=== PATIENT | male | born 1975 | race Caucasian/White ===

== ENCOUNTER 2016-11-07 07:05 | Emergency (ER) | payer MEDICAID ==
[2016-11-07] MEDS ORDERED: ONDANSETRON 4 MG/2 ML VIAL ONE (07:10)
[2016-11-07] MEDS ORDERED: NS 1,000 ML IV ONE ×2 (07:16→08:10)
[2016-11-07] MEDS ORDERED: KETOROLAC 30 MG/1 ML SDV IVP ONE (07:16)
[2016-11-07] MEDS ORDERED: ONDANSETRON 4 MG/2 ML VIAL IVP ONE (07:16)
--- NOTE | 2016-11-07 07:20 | EDPHY ---
H & P Time Seen by Provider: 11/07/16 07:11 HPI/ROS: CHIEF COMPLAINT: Vomiting, diarrhea HISTORY OF PRESENT ILLNESS: Patient is a 41-year-old male who presents to the emergency department with vomiting and diarrhea. He states "I know exactly who gave it to me." Patient states he had a friend who was vomiting for a day. He developed vomiting and diarrhea fairly simultaneously last evening. He has had numerous episodes. He is unable to keep food or liquids down. He feels thirsty and dehydrated. He denies significant abdominal pain. No fevers or chills. Diffuse abdominal cramping with no specific pain. REVIEW OF SYSTEMS: My complete review of systems is negative except as mentioned in the HPI. Past Medical/Surgical History: Attention deficit hyperactivity disorder, chronic back problems Past surgical history: Multiple spinal fusion Social history: The patient denies recent drugs or alcohol. Physical Exam: Vitals noted GENERAL: No acute distress, alert. HEENT: Eyes normal to inspection, normal pharynx, mildly dry mucous membranes. NECK: No thyromegaly, no lymphadenopathy, supple. RESPIRATORY: Clear to auscultation bilaterally, no rales, rhonchi or wheezing. CVS: Regular rate and rhythm, no rubs, murmurs, or gallops. ABDOMEN: Soft, nontender, nondistended, no organomegaly. Benign BACK: Normal to inspection, no CVA tenderness. SKIN: Normal color, no rash, warm, dry. No pallor. EXTREMITIES: No pedal edema, no calf tenderness, no Homans sign or cords, no joint swelling. NEURO/PSYCH: Alert and oriented, normal mood and affect, normal motor sensory exam. Constitutional: Initial Vital Signs Temperature (C) 36.9 C 11/07/16 07:18 Heart Rate 91 11/07/16 07:18 Respiratory Rate 18 11/07/16 07:18 Blood Pressure 131/91 H 11/07/16 07:18 O2 Sat (%) 94 11/07/16 07:18 O2 Delivery Mode Room Air Allergies/Adverse Reactions: No Known Allergies Allergy (Unverified 11/07/16 07:18) Home Medications: Medication Instructions Recorded Adderall 10 MG (*) 11/07/16 Ondansetron Odt [Zofran Odt 4 mg 4 mg PO Q4PRN PRN #7 tab 11/07/16 (*)] Medical Decision Making ED Course/Re-evaluation: In the emergency department I discussed possible etiologies with the patient. The patient was given normal saline 1 L IV for hydration. He was given Zofran 4 mg IV for nausea. The patient had laboratory studies ordered. The patient was complaining of body aches from vomiting. He is given Toradol 30 mg IV. I reviewed the patient's laboratory studies. Of note hematocrit was elevated at 56. His total bilirubin was mildly elevated. Patient was given a repeat L of normal saline for hydration. Differential Diagnosis: My differential includes but is not limited to small-bowel obstruction, perforation, viral illness, dehydration, pancreatitis, cholecystitis - Data Points Laboratory Results: Laboratory Results 11/07/16 07:05 11/07/16 07:05 11/07/16 11/07/16 07:05 07:05 WBC 8.29 10^3/uL 10^3/uL (3.80-9.50) RBC 5.88 10^6/uL 10^6/uL (4.40-6.38) Hgb 19.4 g/dL H g/dL (13.7-17.5) Hct 56.7 % H % (40.0-51.0) MCV 96.4 fL fL (81.5-99.8) MCH 33.0 pg pg (27.9-34.1) MCHC 34.2 g/dL g/dL (32.4-36.7) RDW 13.1 % % (11.5-15.2) Plt Count 225 10^3/uL 10^3/uL (150-400) MPV 8.3 fL L fL (8.7-11.7) Neut % (Auto) 90.6 % H % (39.3-74.2) Lymph % (Auto) 5.3 % L % (15.0-45.0) [place] % (Auto) 3.5 % L % (4.5-13.0) Eos % (Auto) 0.2 % L % (0.6-7.6) Baso % (Auto) 0.2 % L % (0.3-1.7) Nucleat RBC Rel Count 0.0 % % (0.0-0.2) Absolute Neuts (auto) 7.50 10^3/uL H 10^3/uL (1.70-6.50) Absolute Lymphs (auto) 0.44 10^3/uL L 10^3/uL (1.00-3.00) Absolute Monos (auto) 0.29 10^3/uL L 10^3/uL (0.30-0.80) Absolute Eos (auto) 0.02 10^3/uL L 10^3/uL (0.03-0.40) Absolute Basos (auto) 0.02 10^3/uL 10^3/uL (0.02-0.10) Absolute Nucleated RBC 0.00 10^3/uL 10^3/uL (0-0.01) Immature Gran % 0.2 % % (0.0-1.1) Immature Gran # 0.02 10^3/uL 10^3/uL (0.00-0.10) Sodium 144 mEq/L mEq/L (134-144) Potassium 4.1 mEq/L mEq/L (3.5-5.2) Chloride 103 mEq/L mEq/L (97-110) Carbon Dioxide 28 mEq/l mEq/l (22-31) Anion Gap 13 mEq/L mEq/L (8-16) BUN 35 mg/dL H mg/dL (7-23) Creatinine 0.9 mg/dL mg/dL (0.7-1.3) Estimated GFR > 60 Glucose 118 mg/dL H mg/dL (70-100) Calcium 9.7 mg/dL mg/dL (8.5-10.4) Total Bilirubin 1.5 mg/dL H mg/dL (0.1-1.4) Conjugated Bilirubin 0.4 mg/dL mg/dL (0.0-0.5) Unconjugated Bilirubin 1.1 mg/dL mg/dL (0.0-1.1) AST 23 IU/L IU/L (17-59) ALT 36 IU/L IU/L (21-72) Alkaline Phosphatase 93 IU/L IU/L (38-126) Total Protein 8.4 g/dL H g/dL (6.3-8.2) Albumin 4.9 g/dL g/dL (3.5-5.0) Lipase 89.0 IU/L IU/L (23-300) Medications Given: Discontinued Medications Sodium Chloride (Ns) 1,000 mls @ 0 mls/hr IV ONCE ONE PRN Reason: Wide Open Stop: 11/07/16 07:17 Last Admin: 11/07/16 07:21 Dose: 1,000 mls Ketorolac Tromethamine (Toradol) 30 mg IVP EDNOW ONE Stop: 11/07/16 07:17 Last Admin: 11/07/16 07:25 Dose: 30 mg Ondansetron HCl (Zofran) 4 mg IVP EDNOW ONE Stop: 11/07/16 07:17 Last Admin: 11/07/16 07:21 Dose: 4 mg Departure - Departure Disposition: Home, Routine, Self-Care Clinical Impression: Vomiting Qualifiers: Vomiting type: unspecified Vomiting Intractability: non-intractable Nausea presence: with nausea Qualified Code(s): R11.2 - Nausea with vomiting, unspecified Diarrhea Qualifiers: Diarrhea type: presumed infectious Qualified Code(s): A09 - Infectious gastroenteritis and colitis, unspecified Condition: Good Instructions: Acute Nausea and Vomiting (ED), Acute Diarrhea (ED) Additional Instructions: Return with increasing episodes of vomiting, bloody vomiting, inability to tolerate oral intake, or any other concerns. Referrals: [facility],. [Clinic] - 3-4 days, if not improved Prescriptions: Ondansetron Odt [Zofran Odt 4 mg (*)] 4 mg PO Q4PRN PRN #7 tab PRN Reason: For Nausea & Vomiting
[2016-11-07 07:21] VITALS: RESP 18
[2016-11-07 07:22] LABS: % IMMATURE GRANULYOCYTES 0.2 % (0.0-1.1); ABSOLUTE IMMATURE GRANULOCYTES 0.02 10^3/uL (0.00-0.10); ADD DIFF? NO; ADD MORPH? NO; ADD SCAN? NO; ATYPICAL LYMPHOCYTE FLAG 0 (0-99); FRAGMENT RBC FLAG 0 (0-99); HEMATOCRIT 56.7 % (40.0-51.0); HEMOGLOBIN 19.4 g/dL (13.7-17.5); LEFT SHIFT FLG 20 (0-99); LIPEMIA HEMOLYSIS FLAG 90 (0-99); MEAN CELL HEMOGLOBIN CONCENTR. 34.2 g/dL (32.4-36.7); MEAN CELL VOLUME 96.4 fL (81.5-99.8); MEAN PLATELET VOLUME 8.3 fL (8.7-11.7); PLATELET CLUMPS FLAG 0 (0-99); PLATELET COUNT 225 10^3/uL (150-400); RED BLOOD CELL COUNT 5.88 10^6/uL (4.40-6.38); RED CELL DISTRIBUTION WIDTH 13.1 % (11.5-15.2)
[2016-11-07 07:36] LABS: ALANINE AMINOTRANSFERASE 36 IU/L (21-72); ALBUMIN 4.9 g/dL (3.5-5.0); ALKALINE PHOSPHATASE 93 IU/L (38-126); ANION GAP 13 mEq/L (8-16); ASPARTATE AMINOTRANSFERASE 23 IU/L (17-59); BILIRUBIN,TOTAL 1.5 mg/dL (0.1-1.4); BILIRUBIN-CONJUGATED 0.4 mg/dL (0.0-0.5); BILIRUBIN-UNCONJUGATED 1.1 mg/dL (0.0-1.1); CALCIUM 9.7 mg/dL (8.5-10.4); CARBON DIOXIDE 28 mEq/l (22-31); CHLORIDE 103 mEq/L (97-110); CREATININE 0.9 mg/dL (0.7-1.3); GLOMERULAR FILTRATION RATE > 60; GLUCOSE 118 mg/dL (70-100); POTASSIUM 4.1 mEq/L (3.5-5.2); SODIUM 144 mEq/L (134-144); TOTAL PROTEIN 8.4 g/dL (6.3-8.2)
[2016-11-07 10:02] VITALS: BP 118/65; PULSE 94; TEMP 98.8; O2SAT 97
== END 2016-11-07 10:03 | disposition home or self-care (01) ==
DX: A09 Infectious gastroenteritis and colitis, unspecified (principal)
CPT/HCPCS: 96374; J1885; J2405

== ENCOUNTER 2016-11-20 07:34 | Emergency (ER) | payer MEDICAID ==
[~2016-11-20 07:34] MED LIST: IBUPROFEN 600 MG TAB PO SCH
[2016-11-20 07:41] VITALS: RESP 18
--- NOTE | 2016-11-20 09:13 | EDPHY ---
H & P Time Seen by Provider: 11/20/16 09:01 HPI/ROS: CHIEF COMPLAINT: Neck pain HISTORY OF PRESENT ILLNESS: 41-year-old homeless male presents to the emergency department complaining of neck pain and paresthesias in his left upper extremity. The patient states over last 2 weeks he has had discomfort in his neck. He denies any known trauma or injury although he does carry around a very heavy backpack with him all day long. He does not recall any specific trauma or other injury. He states that he has tingling in his fingers and hand over last 2 weeks especially with movement of his neck. He also thinks he has some weakness in his left hand. He denies bowel or bladder incontinence. He has had multiple low back surgeries. He has radiation of symptoms down his left leg which is not uncommon for him. He is able to walk. No bowel or bladder incontinence. No chest pain or difficulty breathing. No abdominal pain. REVIEW OF SYSTEMS: Constitutional: No fever, no chills. Eyes: No double or blurry vision. ENT: No sore throat. Respiratory: No cough, no shortness of breath. Cardiac: No chest pain. Gastrointestinal: No abdominal pain, vomiting or diarrhea. Genitourinary: No dysuria. Musculoskeletal: Neck pain as above. Chronic back pain. Skin: No rashes. Neurological: No headache. Past Medical/Surgical History: Chronic back pain, multiple back surgeries Social History: Homeless Smoking Status: Heavy smoker Physical Exam: General Appearance: Alert, no distress. Eyes: Pupils equal and round. Extraocular motions are all intact. ENT: Mouth: Mucous membranes moist. Respiratory: No wheezing, rhonchi, or rales, lungs are clear to auscultation. Cardiovascular: Regular rate and rhythm. Gastrointestinal: Abdomen is soft and nontender, no masses, no rebound or guarding, bowel sounds normal. Neurological: Alert and oriented x 3, cranial nerves II through XII grossly intact Skin: Warm and dry, no rashes. Musculoskeletal: Nontender to palpate along the cervical, thoracic or lumbar spine. Neck is supple. Normal and equal strength for the upper extremities bilaterally. His reflexes are 2+ and equal for the upper extremities bilaterally. Extremities: Full range of motion and no peripheral edema. Straight leg raise is negative bilaterally. Psychiatric: Patient is oriented X 3, there is no agitation. Constitutional: Initial Vital Signs Temperature (C) 36.5 C 03/15/17 07:38 Heart Rate 74 11/20/16 07:38 Respiratory Rate 18 11/20/16 07:38 Blood Pressure 123/68 H 11/20/16 07:38 O2 Sat (%) 97 11/20/16 07:38 O2 Delivery Mode Room Air Allergies/Adverse Reactions: No Known Allergies Allergy (Verified 11/20/16 07:37) Home Medications: Medication Instructions Recorded methylPREDNISolone [Medrol Dose 1 each PO AD #1 ea 11/20/16 Laci] Medical Decision Making ED Course/Re-evaluation: 41-year-old male presents to the emergency department with neck pain and paresthesias in his left upper extremity. On examination the patient has equal strength for the upper extremities bilaterally and his reflexes are 2+ and equal for the upper extremities bilaterally. I do not think emergent MRI is necessary in the emergency department. This was discussed with the patient who verbalized understanding and agreed. The patient will be treated with Medrol Dosepak and was given [facility] as well as neurosurgeon on-call, Dr. Reyes. He was instructed to return if he developed weakness in the left upper extremity, increasing pain, or if he feels worse in any way. Differential Diagnosis: Including but not limited to musculoskeletal pain, vertebral fracture, herniated nucleus pulposus, muscular spasm Departure - Departure Disposition: Home, Routine, Self-Care Clinical Impression: Neck pain, Paresthesia of arm Condition: Good Instructions: Paresthesia (ED), Neck Pain (ED) Referrals: [facility],. [Clinic] - As per Instructions Emily Reyes DO [Doctor of Osteopathy] - 5-7 days, call for appt. ( Neurosurgeon transitional care nurse) Prescriptions: methylPREDNISolone [Medrol Dose Laci] 1 each PO AD #1 ea
[2016-11-20] MEDS ORDERED: KETOROLAC 30 MG/1 ML SDV IM ONE (10:30)
[2016-11-20] MEDS ORDERED: KETOROLAC 30 MG/1 ML SDV ONE (10:35)
[2016-11-20 11:33] VITALS: BP 138/75; PULSE 86; TEMP 97.2; O2SAT 96
== END 2016-11-20 11:32 | disposition home or self-care (01) ==
DX: M54.2 Cervicalgia (principal); R20.2 Paresthesia of skin; F17.200 Nicotine dependence, unspecified, uncomplicated
CPT/HCPCS: J1885

== ENCOUNTER 2016-12-04 08:56 | Emergency (ER) | payer MEDICAID ==
[~2016-12-04 08:56] MED LIST changes: -IBUPROFEN 600 MG TAB PO SCH; +predniSONE 20 MG TAB PO SCH
[2016-12-04] MEDS ORDERED: KETOROLAC 30 MG/1 ML SDV IM ONE (09:29)
--- NOTE | 2016-12-04 09:36 | EDPHY ---
H & P Time Seen by Provider: 12/04/16 09:13 HPI/ROS: Chief complaint. Left neck and arm pain HPI. 41-year-old male chronic back pain after multiple orthopedic surgeries has 2 months of nontraumatic left side neck left arm pain. Thinks maybe he slightly weak in the left arm. He was seen 2 weeks ago in our emergency department for same. He had a normal exam. He was prescribed Medrol Dosepak and referred both [facility]surgery and [facility] but did not fill the prescription nor did he follow-up. He is here for continuing symptoms. He denies trauma. ROS Constitutional. no fever/chills, no weakness Eyes. no problems with vision ENT. no sore throat, no nasal drainage Cardiovascular. no chest pain Respiratory. no shortness of breath, no cough Abdominal. no abdominal pain, no nausea/vomiting, no diarrhea . no problems urinating MS. Left neck and pain radiating into left arm Skin. no rash Lymph. no swollen glands Neuro. no headache, no dizziness, no difficulty walking or with speech Past Medical/Surgical History: Lumbar fusion, degenerative disc disease, chronic back pain, attention deficit hyperactivity disorder Social History: Single, daily smoker, no alcohol Smoking Status: Heavy smoker Physical Exam: General Appearance: Alert well-developed male mild distress vital signs stable Eyes: Pupils equal and round no pallor or injection. ENT, Mouth: Mucous membranes are moist. Respiratory: There are no retractions, lungs are clear to auscultation. Cardiovascular: Regular rate and rhythm. Gastrointestinal: Abdomen is soft and nontender, no masses, bowel sounds normal. Neurological: Awake and alert, sensory and motor exams grossly normal. Good range of motion of the arms. No pronator drift. Reflexes are symmetrical. Strength appears normal. Skin: Warm and dry, no rashes. Musculoskeletal: Neck is supple nontender. Some left trapezius discomfort to palpation Extremities symmetrical, full range of motion. Psychiatric: Patient is oriented X 3, there is no agitation. Constitutional: O2 Delivery Mode Room Air Allergies/Adverse Reactions: No Known Allergies Allergy (Verified 12/04/16 09:00) Home Medications: Medication Instructions Recorded predniSONE 40 mg PO DAILY #12 tab 12/04/16 Medical Decision Making Procedures: Toradol IM Prescription for prednisone and we will ask our casework supervisor to try to fill this. ED Course/Re-evaluation: Patient appears stable without obvious weakness and no indication for emergent MRI. Again it is emphasized to use medication and follow up with [facility]. I had case management see the patient. We filled his prescription for prednisone. He has had a shot of IM Toradol. We made him an appointment at [facility] and they will see him at noon today. He will be given a cab voucher and taxi over to [facility]. Differential Diagnosis: Chronic pain and this could be musculoskeletal or muscular etiology. He could certainly have DJD causing radiculopathy. However he has no demonstrable weakness to the left arm. Symptoms have been present for 2 months - Data Points Medications Given: Discontinued Medications Ketorolac Tromethamine (Toradol) 60 mg IM EDNOW ONE Stop: 12/04/16 09:30 Last Admin: 12/04/16 09:42 Dose: 60 mg Departure - Departure Disposition: Home, Routine, Self-Care Clinical Impression: Cervical radiculopathy Condition: Good Instructions: Cervical Radiculopathy (ED) Additional Instructions: We will give you your medication today and please take the medication as prescribed. You have an appointment today at 12p.m. at [facility] at [address] [place] [address]. You will need to go through their financial screening process before hand so we are going to try to get their around 11a.m. Also please try to follow up with the neurosurgeon we referred you to during your last ED visit. Return for worsening symptoms Referrals: NONE *PRIMARY CARE P,. [Primary Care Provider] - As per Instructions [facility] [Outside] - 5-7 days, call for appt. Prescriptions: predniSONE 40 mg PO DAILY #12 tab
[2016-12-04] MEDS ORDERED: CYCLOBENZAPRINE 10 MG TAB PO ONE (10:50)
[2016-12-04 11:02] VITALS: BP 147/88; PULSE 95; RESP 18; TEMP 98.1; O2SAT 94
== END 2016-12-04 11:00 | disposition home or self-care (01) ==
DX: M54.12 Radiculopathy, cervical region (principal); F17.200 Nicotine dependence, unspecified, uncomplicated
CPT/HCPCS: J1885; J7512